=== PATIENT | female | born 1960 | race African-American/Black ===

== ENCOUNTER 2019-02-25 05:50 | Emergency (ER) | payer MEDICARE ==
--- NOTE | 2019-03-10 15:02 | ER ---
REASON FOR EMERGENCY ROOM VISIT: Swelling, right cheek. HISTORY: This 59-year-old woman who was previously in good health, awoke this morning with some mild tenderness and swelling involving her right cheek area. She has had minimal pain actually and has had no fever, but has been troubled with a number of broken teeth, particularly molars on the upper and lower molars on the right side. She was most disturbed by the appearance of swelling when she awoke this morning, but the actual discomfort is quite minimal. She has no history of periodontal abscess or periostitis that she has had. She has generally been feeling well with no mouth sores, neck pain, fever, chills, nausea, vomiting, or shortness of breath. PAST MEDICAL HISTORY: 1. She has had knee arthroscopy. 2. Hypercholesterolemia. 3. Hypertension. CURRENT MEDICATIONS: Include simvastatin 10 mg p.o. daily, lisinopril 10 mg p.o. daily. ALLERGIES: None to medications. REVIEW OF SYSTEMS: All pertinent positives and negatives as listed in the HPI. PHYSICAL EXAMINATION: GENERAL: She is afebrile, blood pressure 132/81, heart rate is 96, respiratory rate 15, O2 sats 100%. HEENT: Head is normocephalic. She does have some induration and puffiness about her buccal area on the right side. There is no conjunctivitis. The TMs are normal. Oral examination reveals that she has a number of maxillary and mandibular molars that are broken off at the gumline bilaterally, most noticeable on the right. She has some redness over the gingival mucosa on the outer aspect along her mandibular molars. There is no point tenderness or expressible pus. She is not tender on palpation of any of the broken teeth. There is no sensitivity to touch in these areas. There is mild tenderness along the gingival line. NECK: Supple. There is no adenopathy. CHEST: Clear to auscultation. CARDIAC: Regular rate without murmur. SKIN: No rashes. IMPRESSION: Early periodontal abscess. PLAN: She will be given Augmentin 500/125, dispensed #10 one p.o. b.i.d. She was instructed to make an appointment with her dentist and she assures me that she can do this . I stressed the importance of her being seen within the next couple of days and she knows that she only has antibiotics that will last her 5 days. This is something that needs expertise of her dentist or oral surgeon. She understands. All questions were answered. GUNNAR /[id number]
== END 2019-02-25 06:50 ==
LOC: JD.ED 05:50
DX: K05.219 Aggressive periodontitis, localized, unspecified severity (principal); I10 Essential (primary) hypertension; E78.00 Pure hypercholesterolemia, unspecified; Z79.899 Other long term (current) drug therapy
CPT/HCPCS: 99283

== ENCOUNTER 2019-07-16 12:14 | Emergency (ER) | payer MEDICARE ==
[2019-07-16] MEDS ORDERED: Ketorolac 60 MG/2 ML SDV IM ONE (12:50)
--- NOTE | 2019-07-16 12:53 | EDM.PDOC ---
ED HPI GENERAL MEDICAL PROBLEM - General Chief Complaint: General Stated Complaint: DENTAL COMPLAINT Time Seen by Provider: 07/16/19 12:35 Source of Information: Reports: Patient, RN Notes Reviewed History Limitations: Reports: No Limitations - History of Present Illness INITIAL COMMENTS - FREE TEXT/NARRATIVE: Patient is a 59-year-old female who presents to the ED for the evaluation of a dental complaint. Patient states that she developed dental pain into the upper left part of her mouth 2 days ago. She states that a piece of her tooth has cracked. She has been trying to take 800 mg Advil every 8 hours as needed for pain relief, but states it is not helping much. Patient notes that her teeth are in pretty poor repair, she does not have a dentist in the area, she is recently moved back here from [place]. She denies any fever/chills, or swelling to the area. Patient rate her pain at a 10 out of 10 today. She does not have a regular care provider. She states she has history of hypertension and high cholesterol, otherwise in fairly good health. Tooth/Teeth Pain Score (Numeric/FACES): 10 - Related Data Allergies Allergy/AdvReac Type Severity Reaction Status Date / Time No Known Allergies Allergy Verified 07/16/19 12:30 Home Meds: Home Meds Simvastatin 10 mg PO DAILY 02/25/19 [History] lisinopriL [Prinivil] 10 mg PO DAILY 02/25/19 [History] Amoxicillin/Clavulanate K [Augmentin 875-125 MG] 1 tab PO BID #14 tablet [Rx] Aspirin 81 mg PO DAILY 07/16/19 [History] Naproxen [Naprosyn] 500 mg PO Q12HR #14 tab 07/16/19 [Rx] Past Medical History Cardiovascular History: Reports: High Cholesterol, Hypertension - Past Surgical History Musculoskeletal Surgical History: Reports: Arthroscopic Knee Social & Family History - Tobacco Use Smoking Status *Q: Current Some Day Smoker Years of Tobacco use: 2 Packs/Tins Daily: 0.1 - Caffeine Use Caffeine Use: Reports: Coffee - Recreational Drug Use Recreational Drug Use: No ED ROS GENERAL - Review of Systems Review Of Systems: See Below Constitutional: Reports: Decreased Appetite (d/t tooth pain). Denies: Fever, Chills HEENT: Reports: Dental Pain. Denies: Ear Pain, Throat Pain Respiratory: Denies: Shortness of Breath Cardiovascular: Denies: Chest Pain GI/Abdominal: Denies: Nausea, Vomiting Neurological: Denies: Headache ED EXAM, GENERAL - Physical Exam Exam: See Below Exam Limited By: No Limitations General Appearance: Alert, WD/WN, No Apparent Distress Eye Exam: Bilateral Eye: EOMI, Normal Inspection, PERRL Nose: Normal Inspection Throat/Mouth: Normal Inspection, Normal Lips, Normal Gums, Normal Oropharynx, Normal Voice, No Airway Compromise, Other (Dentition in very poor repair, Multiple fillings noted, with multiple dental caries extending into the dentin. Patient has missing teeth all over her mouth, but the tooth that is bothersome to her is in the upper left jaw, in the incisor area.) Head: Atraumatic, Normocephalic Neck: Normal Inspection, Supple, Non-Tender, Full Range of Motion Respiratory/Chest: No Respiratory Distress, Lungs Clear, Normal Breath Sounds, No Accessory Muscle Use, Chest Non-Tender Cardiovascular: Normal Peripheral Pulses, Regular Rate, Rhythm, No Murmur Extremities: Normal Inspection, Normal Capillary Refill Neurological: Alert, Oriented, Normal Cognition, No Motor/Sensory Deficits Psychiatric: Normal Affect, Normal Mood Skin Exam: Warm, Dry, Intact, Normal Color, No Rash Course - Vital Signs Last Recorded V/S: Last Vital Signs Temp 98.9 F 07/16/19 12:27 Pulse 110 H 07/16/19 12:27 Resp 14 07/16/19 12:27 BP 137/105 H 07/16/19 12:27 Pulse Ox 100 07/16/19 12:27 - Orders/Labs/Meds Meds: Medications Discontinued Medications Generic Name Dose Route Start Last Admin Trade Name Ramya PRN Reason Stop Dose Admin Ketorolac Tromethamine 60 mg 07/16/19 12:50 Toradol IM 07/16/19 12:51 ONETIME ONE - Re-Assessments/Exams Free Text/Narrative Re-Assessment/Exam: 07/16/19 12:57 Patient presents to the ED for the evaluation of dental complaint. Patient will be given a 60 mg injection of Toradol, and a prescription for Naprosyn and antibiotics, she will need to seek dental care for definitive management. Departure - Departure Time of Disposition: 12:51 Disposition: Home, Self-Care 01 Condition: Fair Clinical Impression: Dental caries extending into dentin, Pain, dental - Discharge Information *PRESCRIPTION DRUG MONITORING PROGRAM REVIEWED*: No *COPY OF PRESCRIPTION DRUG MONITORING REPORT IN PATIENT SACHI: No Prescriptions: Naproxen [Naprosyn] 500 mg PO Q12HR #14 tab Amoxicillin/Clavulanate K [Augmentin 875-125 MG] 1 tab PO BID #14 tablet Instructions: Diet and Dental Disease Referrals: PCP,None [Primary Care Provider] - Forms: ED Department Discharge Additional Instructions: You have been evaluated in the ED for your dental pain. You have been provided with a script for Augmentin. This was electronically sent to [place] pharmacy located in the [facility]. Please take this medication as directed. (1 tab twice daily for 7 days or until gone). This antibiotic can cause diarrhea, recommend that you start a probiotic while taking this medication. You have provided with a prescription for Naprosyn, please take one tablet every 12 hours as needed for pain relief. You may use hot pack/ ice packs to the affected area as tolerated in 15-20 minute intervals. You will ultimately need to find a dentist to provide definitive management of your dental pain. The [facility] in [place], [place], , is a clinic that has been known to take people that do not have dental insurance, and may provide payment plans. You might want to check with this provider, regarding your dental pain. Please return to the ED if your symptoms change or worsen. Sepsis Event Note - Evaluation Sepsis Screening Result: No Definite Risk - Focused Exam Vital Signs: Vital Signs Temp Pulse Resp BP Pulse Ox 07/16/19 12:27 98.9 F 110 H 14 137/105 H 100 Date Exam was Performed: 07/16/19 Time Exam was Performed: 12:53
== END 2019-07-16 13:14 | disposition home or self-care (01) ==
LOC: JD.ED 12:14
DX: K02.9 Dental caries, unspecified (principal); I10 Essential (primary) hypertension; F17.210 Nicotine dependence, cigarettes, uncomplicated; Z79.899 Other long term (current) drug therapy; Z79.82 Long term (current) use of aspirin
CPT/HCPCS: 96372; 99282; J1885

== ENCOUNTER 2019-10-29 13:35 | Emergency (ER) | payer MEDICARE ==
[2019-10-29] MEDS ORDERED: Lidocaine 1% 10 ML MDV INJECT ONE (14:35)
--- NOTE | 2019-10-29 15:12 | EDM.PDOC ---
ED HPI GENERAL MEDICAL PROBLEM - General Chief Complaint: Laceration Stated Complaint: LEFT LEG LACERATION Time Seen by Provider: 10/29/19 14:33 Source of Information: Reports: Patient History Limitations: Reports: No Limitations - History of Present Illness INITIAL COMMENTS - FREE TEXT/NARRATIVE: Patient is a 59-year-old female who presents with a laceration to her right knee. Patient states that her son was trying to catch the dog who jumped up on a glass coffee table. When the son grabbed the dog the coffee table broke and a piece of glass cut her in the knee. She is up-to-date on her tetanus vaccination. States she received it within the "last few years". - Related Data Allergies Allergy/AdvReac Type Severity Reaction Status Date / Time No Known Allergies Allergy Verified 10/29/19 13:53 Home Meds: Home Meds Simvastatin 10 mg PO DAILY 02/25/19 [History] lisinopriL [Prinivil] 10 mg PO DAILY 02/25/19 [History] Aspirin 81 mg PO DAILY 07/16/19 [History] Past Medical History HEENT History: Reports: None Cardiovascular History: Reports: High Cholesterol, Hypertension Respiratory History: Reports: None Gastrointestinal History: Reports: None Genitourinary History: Reports: None [employer] History: Reports: None Neurological History: Reports: None Psychiatric History: Reports: None Endocrine/Metabolic History: Reports: None Hematologic History: Reports: None Immunologic History: Reports: None Oncologic (Cancer) History: Reports: None Dermatologic History: Reports: None - Infectious Disease History Infectious Disease History: Reports: None - Past Surgical History Musculoskeletal Surgical History: Reports: Arthroscopic Knee Social & Family History - Tobacco Use Smoking Status *Q: Former Smoker Used Tobacco, but Quit: Yes Month/Year Tobacco Last Used: 11/08 - Caffeine Use Caffeine Use: Reports: Coffee - Recreational Drug Use Recreational Drug Use: No ED ROS GENERAL - Review of Systems Review Of Systems: Comprehensive ROS is negative, except as noted in HPI. ED EXAM, SKIN/RASH Exam: See Below Exam Limited By: No Limitations General Appearance: Alert, WD/WN, No Apparent Distress Respiratory/Chest: No Respiratory Distress, Lungs Clear, Normal Breath Sounds, No Accessory Muscle Use, Chest Non-Tender Cardiovascular: Normal Peripheral Pulses, Regular Rate, Rhythm, No Edema, No Gallop, No JVD, No Murmur, No Rub Skin: Other (7 cm laceration to the right knee approximately 2 cm below the patella. Wound is gaping but fairly superficial. The laceration appears to have occurred at an angle. The distal side of laceration has a flap. Small amount of bleeding present ) ED SKIN PROCEDURES - Laceration/Wound Repair Right Lower Knee Appearance: Subcutaneous Distal NVT: Neuro & Vascular Intact Anesthetic Type: Local Local Anesthesia - Lidocaine (Xylocaine): 1% Plain Local Anesthetic Volume: 4cc Skin Prep: Providone-Iodine (Betadine), Saline Exploration/Debridement/Repair: Wound Explored, In a Bloodless Field, No Foreign Material Found Closed with: Sutures Lac/Wound length In cm: 7 Suture Size: 3-0 # of Sutures: 12 Suture Type: Nylon Sterile Dressing Applied: Nurse Tetanus Status Addressed: Yes Complications: No Course - Vital Signs Last Recorded V/S: Last Vital Signs Temp 96.9 F 10/29/19 13:49 Pulse 97 10/29/19 13:49 Resp 16 10/29/19 13:49 BP 120/71 10/29/19 13:49 Pulse Ox 100 10/29/19 13:49 - Orders/Labs/Meds Meds: Medications Discontinued Medications Generic Name Dose Route Start Last Admin Trade Name Freq PRN Reason Stop Dose Admin Lidocaine HCl 10 ml 10/29/19 14:35 10/29/19 14:46 Xylocaine 1% INJECT 10/29/19 14:36 10 ml ONETIME ONE Administration Departure - Departure Time of Disposition: 15:10 Disposition: Home, Self-Care 01 Condition: Good Clinical Impression: Knee laceration Qualifiers: Encounter type: initial encounter Laterality: right Qualified Code(s): S81.011A - Laceration without foreign body, right knee, initial encounter - Discharge Information *PRESCRIPTION DRUG MONITORING PROGRAM REVIEWED*: No *COPY OF PRESCRIPTION DRUG MONITORING REPORT IN PATIENT SACHI: No Instructions: Laceration Care, Adult, Sutures, [place], or Adhesive Wound Closure Referrals: PCP,None [Primary Care Provider] - Forms: ED Department Discharge Additional Instructions: You were seen in the emergency department today for a 7 cm laceration to your right knee. The wound was cleansed and closed with 12 sutures. These should remain intact until next Saturday. Recommend that you call to schedule a nurse visit with your primary care provider to have these removed on Saturday afternoon. Keep the wound clean and dry. You may wash with normal soap and water twice a day. You can shower as normal but do not submerge the wound in water. Watch for signs of infection including increased redness, swelling, or purulent drainage. If these should occur I would recommend you follow-up with your primary care provider or return to the ER as needed. Sepsis Event Note - Evaluation Sepsis Screening Result: No Definite Risk - Focused Exam Vital Signs: Vital Signs Temp Pulse Resp BP Pulse Ox 10/29/19 13:49 96.9 F 97 16 120/71 100 Date Exam was Performed: 10/29/19 Time Exam was Performed: 15:49
== END 2019-10-29 15:20 | disposition home or self-care (01) ==
LOC: JD.ED 13:35
DX: S81.011A Laceration without foreign body, right knee, initial encounter (principal); I10 Essential (primary) hypertension; E78.00 Pure hypercholesterolemia, unspecified; Z87.891 Personal history of nicotine dependence; Z79.82 Long term (current) use of aspirin; Z79.899 Other long term (current) drug therapy; W25.XXXA Contact with sharp glass, initial encounter
CPT/HCPCS: 12002; 99282; J2001

== ENCOUNTER 2020-01-14 22:27 | Emergency (ER) | payer MEDICARE ==
[2020-01-15] MEDS ORDERED: predniSONE 20 MG Tab PO ONE (00:20)
[2020-01-15] MEDS ORDERED: Orphenadrine 100 MG Tab.ER PO ONE (00:20)
--- NOTE | 2020-01-15 00:25 | EDM.PDOC ---
ED HPI GENERAL MEDICAL PROBLEM - General Chief Complaint: General Stated Complaint: SHOULDER PAIN Time Seen by Provider: 01/15/20 00:12 Source of Information: Reports: Patient, RN Notes Reviewed History Limitations: Reports: No Limitations - History of Present Illness INITIAL COMMENTS - FREE TEXT/NARRATIVE: Patient is a 60-year-old female who presents to the ED for the evaluation of her right shoulder issue. Patient notes that this started earlier today, she is having some numbness and tingling to her shoulder area, and she believes it originates in the posterior portion of her neck. She is also having a headache as well. She did take some ibuprofen earlier this seemed to help the headache but not the numbness in the shoulder. Patient believes that she could have sl ept wrong that is causing some the issues, she states that she sleeps with her hands up by her head most nights. Patient can move her head from side to side with little to no difficulty. Patient notes that she has recently got new pillows as well, so does not think that it could be due to old pillows. Patient denies any other sick-like symptoms, fever/chills, shortness of breath/chest pain, cough, nausea/vomiting/diarrhea. Patient denies any blurred vision or double vision, she denies any numbness and tingling that extends into her fingers. - Related Data Allergies Allergy/AdvReac Type Severity Reaction Status Date / Time No Known Allergies Allergy Verified 10/29/19 13:53 Home Meds: Home Meds Simvastatin 10 mg PO DAILY 02/25/19 [History] lisinopriL [Prinivil] 10 mg PO DAILY 02/25/19 [History] Aspirin 81 mg PO DAILY 07/16/19 [History] Orphenadrine [Norflex] 100 mg PO BID PRN #20 tab 01/15/20 [Rx] predniSONE 20 mg PO ASDIRECTED #15 tab 01/15/20 [Rx] Past Medical History Cardiovascular History: Reports: High Cholesterol, Hypertension Neurological History: Reports: None - Past Surgical History Musculoskeletal Surgical History: Reports: Arthroscopic Knee Social & Family History - Tobacco Use Smoking Status *Q: Current Every Day Smoker Years of Tobacco use: 1 Packs/Tins Daily: 0.5 - Caffeine Use Caffeine Use: Reports: Coffee, Soda, Tea - Recreational Drug Use Recreational Drug Use: No ED ROS GENERAL - Review of Systems Review Of Systems: Comprehensive ROS is negative, except as noted in HPI. ED EXAM, GENERAL - Physical Exam Exam: See Below Exam Limited By: No Limitations General Appearance: Alert, WD/WN, No Apparent Distress Eye Exam: Bilateral Eye: EOMI, Normal Inspection, PERRL Ears: Normal External Exam Nose: Normal Inspection Throat/Mouth: Normal Inspection, Normal Lips, Normal Teeth, Normal Gums, Normal Oropharynx, Normal Voice, No Airway Compromise Head: Atraumatic, Normocephalic Neck: Normal Inspection, Supple, Full Range of Motion, Tender Lateral (pt has point tenderness over the inferiolateral portion of her right neck and states this is where most of her pain is.) Respiratory/Chest: No Respiratory Distress, Lungs Clear, Normal Breath Sounds, No Accessory Muscle Use, Chest Non-Tender Cardiovascular: Normal Peripheral Pulses, Regular Rate, Rhythm, No Edema, No Murmur Peripheral Pulses: 3+: Radial (L), Radial (R) Extremities: Normal Inspection, Normal Range of Motion, Normal Capillary Refill Neurological: Alert, Oriented, CN II-XII Intact, Normal Cognition, No Motor/Sensory Deficits Psychiatric: Normal Affect, Normal Mood Skin Exam: Warm, Dry, Intact, Normal Color, No Rash Course - Vital Signs Last Recorded V/S: Last Vital Signs Temp 97.0 F 01/14/20 22:49 Pulse 90 01/14/20 22:49 Resp 20 01/14/20 22:49 BP 110/68 01/14/20 22:49 Pulse Ox 100 01/14/20 22:49 - Orders/Labs/Meds Orders: Active Orders 24 hr Category Date Time Status Orphenadrine [Norflex] Med 01/15/20 00:20 Once 100 mg PO ONETIME ONE predniSONE Med 01/15/20 00:20 Once 40 mg PO ONETIME ONE - Re-Assessments/Exams Free Text/Narrative Re-Assessment/Exam: 01/15/20 00:25 Patient presents to the ED for her right shoulder issue. I do suspect cervical radiculopathy in nature, although the patient's not had images taken of her neck before. I will provide her with a course of prednisone and some Norflex, see if this helps her symptoms. She will be directed to follow-up with a primary care for further imaging if her pain is not getting much better after conservative measures. Departure - Departure Time of Disposition: 00:25 Disposition: Home, Self-Care 01 Condition: Good Clinical Impression: Cervical radiculopathy - Discharge Information *PRESCRIPTION DRUG MONITORING PROGRAM REVIEWED*: No *COPY OF PRESCRIPTION DRUG MONITORING REPORT IN PATIENT SACHI: No Instructions: Cervical Radiculopathy, [id number] Referrals: PCP,None [Primary Care Provider] - Additional Instructions: You were evaluated in the ER today regarding your right shoulder issue and your right-sided neck pain. It is likely that you have some discogenic nerve pain or radiculopathy, that is extending to your right shoulder. You have been given a course of prednisone, and a muscle relaxer to help relieve some of your symptoms at this time. If your pain is not much better after these conservative measures, recommend you seek care to have your neck imaged for further management purposes. You may try ice/heat packs to the area as well to provide further pain relief. Please do not take extra ibuprofen while taking the prednisone, as this can increase the risk of a GI bleed. Please return to the ER at any time if your symptoms change or worsen. Sepsis Event Note (ED) - Evaluation Sepsis Screening Result: No Definite Risk - Focused Exam Vital Signs: Vital Signs Temp Pulse Resp BP Pulse Ox 01/14/20 22:49 97.0 F 90 20 110/68 100 - My Orders Last 24 Hours: My Active Orders 01/15/20 00:20 Orphenadrine [Norflex] 100 mg PO ONETIME ONE predniSONE 40 mg PO ONETIME ONE - Assessment/Plan Last 24 Hours: My Active Orders 01/15/20 00:20 Orphenadrine [Norflex] 100 mg PO ONETIME ONE predniSONE 40 mg PO ONETIME ONE
== END 2020-01-15 00:32 | disposition home or self-care (01) ==
LOC: JD.ED 22:27
DX: M54.12 Radiculopathy, cervical region (principal); E78.00 Pure hypercholesterolemia, unspecified; I10 Essential (primary) hypertension; F17.210 Nicotine dependence, cigarettes, uncomplicated; Z79.82 Long term (current) use of aspirin; Z79.899 Other long term (current) drug therapy
CPT/HCPCS: 99283; A9270; J7512

== ENCOUNTER 2023-03-15 16:06 | Emergency (ER) | payer MEDICARE | END 2023-03-15 18:00 | disposition home or self-care (01) | LOC: JD.ED 16:06 | DX: S63.502A Unspecified sprain of left wrist, initial encounter (principal); M25.552 Pain in left hip; E78.00 Pure hypercholesterolemia, unspecified; I10 Essential (primary) hypertension; Z79.899 Other long term (current) drug therapy; W18.30XA Fall on same level, unspecified, initial encounter | CPT/HCPCS: 73130-26-LT; 73130-LT; 73502-26-LT; 73502-LT; 99283 ==

== ENCOUNTER 2024-01-23 22:51 | Emergency (ER) | payer MEDICARE | END 2024-01-24 00:27 | disposition left against medical advice (07) | LOC: JD.ED 22:51 | DX: Z53.21 Procedure and treatment not carried out due to patient leaving prior to being seen by health care provider (principal) ==

== ENCOUNTER 2024-11-24 15:48 | Emergency (ER) | payer MEDICARE ==
[2024-11-24 16:54] LABS: BASOPHILS PERCENT AUTO 0.2 % (0.0-1.0); EOSINOPHILS ABSOLUTE AUTO 0.1 K/mm3 (0.0-0.4); EOSINOPHILS PERCENT AUTO 1.1 % (0.0-6.0); HEMATOCRIT 37.6 % (37.0-47.0); HEMOGLOBIN 11.4 gm/dl (12.0-16.0); IMMATURE GRAN ABSOLUTE AUTO 0.01 K/mm3 (0.00-0.05); IMMATURE GRAN PERCENT AUTO 0.2 % (0.0-0.4); LYMPHOCYTES ABSOLUTE AUTO 1.1 K/mm3 (1.0-4.8); LYMPHOCYTES PERCENT AUTO 19.6 % (24.0-44.0); MEAN CORPUSCULAR HEMOGLOBIN 26.6 pg (28.0-32.0); MEAN CORPUSCULAR HGB CONC 30.3 g/dl (32.0-36.0); MEAN CORPUSCULAR VOLUME 87.9 fl (83.0-99.0); MEAN PLATELET VOLUME 9.3 fl (9.4-12.3); MONOCYTES ABSOLUTE AUTO 0.6 K/mm3 (0.0-0.8); NEUTROPHILS ABSOLUTE AUTO 3.8 K/mm3 (1.8-7.7); NEUTROPHILS PERCENT AUTO 67.9 % (41.0-71.0); PLATELET COUNT,PLT 223 K/mm3 (150-400); RED BLOOD CELL COUNT 4.28 M/mm3 (4.10-5.30); WHITE BLOOD CELL COUNT,WBC 5.62 K/mm3 (3.9-11.3)
[2024-11-24 17:17] LABS: A/G RATIO 1.2 (1-2); ALBUMIN 3.7 g/dl (3.4-5.0); ANION GAP 14.1 (5-15); BILIRUBIN TOTAL 0.6 mg/dL (0.2-1.0); C-REACTIVE PROTEIN 0.34 mg/dL (<0.30); CALCIUM 9.7 mg/dL (8.5-10.1); CREATININE 1.1 mg/dL (0.55-1.02); EST CRCL DRUG DOSING (CG) 41.94 mL/min; POTASSIUM,K 4.1 mEq/L (3.5-5.1); PROTEIN TOTAL,TP 6.8 g/dl (6.4-8.2); URIC ACID 3.2 mg/dL (2.6-6.0)
[2024-11-24] MEDS: Doxycycline Monohydrate 100 MG Cap PO ONE (18:01)
[2024-11-24] MEDS: Acetaminophen/HYDROcodone 325-5 MG Tab PO ONE (18:01)
== END 2024-11-24 18:11 | disposition home or self-care (01) ==
LOC: JD.ED 15:48
DX: L03.115 Cellulitis of right lower limb (principal); I10 Essential (primary) hypertension; E78.00 Pure hypercholesterolemia, unspecified; Z79.899 Other long term (current) drug therapy; Z86.16 Personal history of COVID-19
CPT/HCPCS: 36415; 73630; 80053; 84550; 85025; 86140; 99283; A9270; 99284